=== PATIENT | male | born 1955 | race Caucasian/White ===

== ENCOUNTER 2020-10-31 09:07 | Emergency (ER) | payer BC, SELFPAY ==
[2020-10-31 09:10] VITALS: BP 126/81; PULSE 78; RESP 18; TEMP 36.4; O2SAT 99; BMI 28.9
--- NOTE | 2020-10-31 09:10 | DI.RAD.S_ITS ---
PROCEDURE: XR CHEST 1V INDICATIONS: palpitations, SOB, CP TECHNIQUE: One view of the chest was acquired. COMPARISON: None. FINDINGS: Surgical changes and devices: None. Lungs and pleura: Lungs are clear. No pleural effusions or pneumothorax. Mediastinum: Mediastinal contours appear normal. Heart size is normal. Bones and chest wall: No suspicious bony lesions. Overlying soft tissues appear unremarkable. IMPRESSION: No acute process. Dictated by: Vicente Zepeda M.D. on 10/31/2020 at 8:40 Approved by: Vicente Zepeda M.D. on 10/31/2020 at 8:40
[2020-10-31] MEDS: SODIUM CHLORIDE 0.9% 1,000 ML 150 ML IV (09:23)
[2020-10-31] MEDS: ASPIRIN 81 MG CHEW TAB 324 MG PO (09:23)
[2020-10-31 09:45] LABS: Add Manual Diff / Slide Review NO; Basophils Absolute Auto 0 /uL (0-100); Basophils Percent Auto 0.6 % (0-2); Eosinophils Absolute Auto 100 /uL (0-450); Eosinophils Percent Auto 3.2 % (2-4); Hematocrit 45.8 % (41-53); Hemoglobin 15.5 g/dL (13.5-17.5); Lymphocytes Absolute Auto 1100 /uL (1100-4500); Lymphocytes Percent Auto 25.7 % (25-40); Mean Corpuscular HGB Conc 33.8 % (30-36); Mean Corpuscular Hemoglobin 33.8 PG (26-34); Mean Corpuscular Volume 99.8 fL (80-100); Monocytes Absolute Auto 400 /uL (0-900); Monocytes Percent Auto 8.6 % (3-14); Neutrophils Absolute Auto 2500 /uL (1500-7000); Neutrophils Percent Auto 61.9 % (50-75); Platelet Count 240 X10^3/uL (150-400); Red Blood Cell Count 4.58 X10^6/uL (4.5-5.9); Red Cell Distribution Width 13.2 % (11.6-14.8); White Blood Cell Count 4.1 X10^3/uL (4.5-11.0)
--- NOTE | 2020-10-31 09:52 | PC.NURSE ---
reports his watch told him he is in afib. denies chest pains, denies SOB.
--- NOTE | 2020-10-31 09:58 | ED_ITS ---
HPI - Arrhythmia/Palpitations General Chief Complaint: Arrhythmia/Palpitations Stated Complaint: AFIB-SENT BY [facility] Time Seen by Provider: 10/31/20 09:10 Source: patient and family Mode of arrival: Family Vehicle Limitations: no limitations History of Present Illness HPI narrative: 64-year-old male nonsmoker without chronic medical history presents from the walk-in clinic for evaluation of an irregular heart rhythm. He states that he started having some palpitations and fluttering his chest last night and thinks he may or may not have had on occasion for prior episodes. He is currently largely asymptomatic but does have some palpitations. He has no known history of atrial fibrillation and states his watch last night suggested he does have AFib. He is not dizzy nor weak or lightheaded. He denies any new medications or dietary change. He did have a couple whiskeys last night which is more than normal but otherwise is at his baseline. Related Data Allergies Allergy/AdvReac Type Severity Reaction Status Date / Time No Known Drug Allergies Allergy Verified 10/31/20 09:22 Review of Systems Review of Systems Narrative: GENERAL: Denies chills, fatigue, malaise, fever, sweats. HEENT: Denies sinus pain, ear pain, sore throat, difficulty swallowing, dizziness. RESPIRATORY: Denies dyspnea, cough, wheezing, hemoptysis, sputum. CARDIOVASCULAR: See HPI GASTROINTESTINAL: Denies nausea, vomiting, abdominal pain, diarrhea, constipation, melena. : Denies dysuria, frequency, incontinence, hematuria, urinary retention. MUSCULOSKELETAL: denies weakness, joint pain, or bony pain SKIN: Denies rash, skin lesions, or other NEUROLOGIC: Denies weakness, headache, numbness, change in speech, confusion, seizures, incoordination. PSYCHIATRIC: No concerning psychosocial issues. 12 point review of systems is negative except for those stated above Patient History Social History Smoking Status: Never smoker Smoking Status: Never smoker alcohol intake frequency: 3 or more drinks per day Substance Use Type: does not use Exam Narrative Exam Narrative: GENERAL: [64] year old patient appears stated age. Well- developed patient, in mild distress. HEAD: Atraumatic. Normocephalic. EYES: Pupils equal round and reactive. Extraocular motions intact. No scleral icterus. No injection or drainage. ENT: Nose without bleeding, purulent drainage. Throat without erythema, tonsillar hypertrophy or exudate. Airway patent. NECK: Trachea midline. Non tender CARDIOVASCULAR: Irregular rhythm and rate rwithout murmurs, gallops, or rubs. RESPIRATORY: Clear to auscultation. Breath sounds equal bilaterally. No wheezes, rales, or rhonchi. No signs of respiratory distress GASTROINTESTINAL: Abdomen soft, non-tender, nondistended. EXTREMITIES: No edema or joint tenderness. BACK: Nontender without deformity or crepitance. No flank tenderness. NEURO: AOx3. SKIN: No rash or erythema of visible areas Initial Vital Signs Initial Vital Signs: Vital Signs Temperature 97.5 F L 10/31/20 09:10 Pulse Rate 78 10/31/20 09:10 Respiratory Rate 18 10/31/20 09:10 Blood Pressure 126/81 10/31/20 09:10 Pulse Oximetry 99 10/31/20 09:10 Scores CHADS-VASc Congestive heart failure: no Hypertension: no Age 75 years or older: no Diabetes mellitus: no Stroke, TIA, or TE: no Vascular disease: no Age 65 to 74 years: no Sex category (female): Male CHADS-VASc Score: 0 Course Course Course Narrative: Patient's timeline is unclear and he is certainly in no extremis. I have consulted with Cardiology we sure the opinion that he is inappropriate for cardioversion at this point time. His chads Vasc score is 0. Cardiology did recommend a low-dose beta-natalie but patient states his resting heart rate is typically in the 50s and we will hold off for now. Orders Ordered: ED Orders 10/31/20 09:10 XR chest 1V Stat EKG-12 Lead Stat 10/31/20 09:15 Complete Blood Count AUTO DIFF Stat Comprehensive Metabolic Panel Stat Lipase Stat NT-proBNP (BNP-Adult 18+) Stat Troponin & CK Cardiac Panel Stat Sodium Chloride (Normal Saline 0.9%) 1,000 mls @ 150 mls/hr IV CONT JOHN Last Admin: 10/31/20 09:23 Dose: 150 mls/hr Documented by: KRISTYN Discontinued Medications Aspirin (Aspirin 81 Mg Chew Tab) 324 mg PO NOW ONE Stop: 10/31/20 09:11 Last Admin: 10/31/20 09:23 Dose: 324 mg Documented by: RSTONE Consultations Consultation #1: call to Dr. Quijano, he agrees no indication for cardioversion. Ok with holding BB for now, recommends only full dose ASA and close follow up. Vital Signs Vital signs: Vital Signs - 8 hr 10/31/20 09:10 10/31/20 10:19 Temperature 97.5 F L Pulse Rate 78 78 Respiratory Rate 18 14 Blood Pressure 126/81 106/66 Pulse Oximetry 99 100 MDM - Arrhythmia/Palpitations Lab Data Result diagrams: 10/31/20 09:15 10/31/20 09:15 Labs: Lab Results 10/31/20 10/31/20 Range/Units 09:15 09:15 WBC 4.1 L (4.5-11.0) X10^3/uL RBC 4.58 (4.5-5.9) X10^6/uL Hgb 15.5 (13.5-17.5) g/dL Hct 45.8 (41-53) % MCV 99.8 (80-100) fL MCH 33.8 (26-34) PG MCHC 33.8 (30-36) % RDW 13.2 (11.6-14.8) % Plt Count 240 (150-400) X10^3/uL Neut % (Auto) 61.9 (50-75) % Lymph % (Auto) 25.7 (25-40) % [place] % (Auto) 8.6 (3-14) % Eos % (Auto) 3.2 (2-4) % Baso % (Auto) 0.6 (0-2) % Neut # (Auto) 2500 (6042-7114) /uL Lymph # (Auto) 1100 (5653-5950) /uL [place] # (Auto) 400 (0-900) /uL Eos # (Auto) 100 (0-450) /uL Baso # (Auto) 0 (0-100) /uL Sodium 139 (137-145) mmol/L Potassium 4.2 (3.4-5.1) mmol/L Chloride 107 (98-107) mmol/L Carbon Dioxide 29 (22-32) mmol/L BUN 14 (9-20) mg/dL Creatinine 0.99 (0.66-1.25) mg/dL Estimated GFR > 60.0 (>60) mL/min BUN/Creatinine Ratio 14.1 (6-22) Glucose 101 (80-110) mg/dL Calcium 9.3 (8.4-10.2) mg/dL Total Bilirubin 0.7 (0.2-1.3) mg/dL AST 23 (17-59) IU/L ALT 14 (<50) IU/L Alkaline Phosphatase 64 (38-126) U/L Total Creatine Kinase 68 (55-170) U/L CK-MB (CK-2) TNP CK-MB (CK-2) Rel Index TNP Troponin I < 0.012 (0.01-0.034) ng/mL NT-Pro-B Natriuret Pep 1150 H (<125) pg/mL Total Protein 7.1 (6.3-8.2) g/dL Albumin 4.2 (3.5-5.0) g/dL Globulin 2.9 (1.7-4.1) g/dL Albumin/Globulin Ratio 1.4 (1.0-2.8) Lipase 66 (23-300) U/L ECG Data Interpretation: EKG is atrial fibrillation with rate [ 75] and free of any signs of ischemia or ectopy. No ST segmental elevation or depression. No T wave inversions Discharge Plan Departure Patient Disposition: Home Clinical Impression: Atrial fibrillation Qualifiers: Atrial fibrillation type: paroxysmal Qualified Code(s): I48.0 - Paroxysmal atrial fibrillation Instructions: DI for Atrial Fibrillation Activity Restrictions/Additional Instructions: *You have been diagnosed with [newly discovered Atrial Fib ] *What to do: *Please begin use of Aspirin 325mg daily. *Call [facility] Cardiology (number below for Dr. Quijano) on Monday morning and let them know you were seen in the ED and Dr. Quijano (Cardiology) and Dr. Mortensen (Emergency) want you seen in follow up. *Return to Emergency Department if you should have any new, worsening or concerning symptoms, such as [chest pain, feel like you will pass out, shortness of breath, or other bothersome symptoms Referrals: Lewis Quijano MD [Physician] - Ambrose Guerrero MD [Primary Care Provider] -
[2020-10-31 09:59] LABS: Alanine Aminotransferase 14 IU/L (<50); Albumin 4.2 g/dL (3.5-5.0); Albumin Globulin Ratio 1.4 (1.0-2.8); Alkaline Phosphatase 64 U/L (38-126); Aspartate Aminotransferase 23 IU/L (17-59); BUN Creatinine Ratio 14.1 (6-22); Bilirubin Total 0.7 mg/dL (0.2-1.3); Blood Urea Nitrogen 14 mg/dL (9-20); Calcium 9.3 mg/dL (8.4-10.2); Carbon Dioxide 29 mmol/L (22-32); Chloride 107 mmol/L (98-107); Creatine Kinase 68 U/L (55-170); Estimated Glomerular Filt Rate > 60.0 mL/min (>60); Globulin 2.9 g/dL (1.7-4.1); Glucose 101 mg/dL (80-110); HEMOLYSIS < 15 (0-50); Lipase 66 U/L (23-300); Potassium 4.2 mmol/L (3.4-5.1); Sodium 139 mmol/L (137-145); Total Protein 7.1 g/dL (6.3-8.2)
[2020-10-31 10:11] LABS: NT-proBNP (BNP-Adult 18+) 1150 pg/mL (<125); Troponin I < 0.012 ng/mL (0.01-0.034)
[2020-10-31 10:19] VITALS: BP 106/66; PULSE 78; RESP 14; O2SAT 100
== END 2020-10-31 10:30 | disposition home or self-care (01) ==
PROVIDERS: Emergency Provider Emergency Medicine; PCP Family Medicine
DX: I48.0 Paroxysmal atrial fibrillation (principal)
CPT/HCPCS: 36415; 71045; 80053; 82550; 83690; 83880; 84484; 85025; 93005; 96360; 99284

== ENCOUNTER → 2020-11-02 16:34 | Outpatient (CLI) | payer BC, SELFPAY ==
[2020-11-02 17:13] LABS: Magnesium 2.1 mg/dL (1.6-2.3)
[2020-11-02 17:44] LABS: Thyroid Stimulating Hormone 3.95 uIU/mL (0.47-4.68)
== END ==
PROVIDERS: PCP Family Medicine; Referring Provider Family Medicine; Visit Provider Family Medicine
DX: I48.91 Unspecified atrial fibrillation (principal)
CPT/HCPCS: 36415; 83735; 84443

== ENCOUNTER → 2020-11-10 07:47 | Outpatient (CLI) | payer BC, SELFPAY ==
--- NOTE | 2020-11-10 | DI.ECHO.S_ITS ---
[facility] +---------+ Hospital +---------+ : : [address] : : : : [id number] : : : : Phone: [phone] Echocardiogram Report + + :Name: PHIL MORENO Study Date: 11/10/2020 Height: 75 in : :[facility] ReadingLocation: Weight: 227 lb : : Gender: Male BSA: 2.3 m2 : :: 1955 Age: 64 yrs BP: 104/73 mmHg: :Reason For Study: ATRIAL FIBRILLATION : :Ordering Physician: REESE, : :LAVINIA Performed By: Loren Bazan : :Referring: LAVINIA LEIGH : + + Interpretation Summary The ejection fraction is estimated to be 55-60%. Diastolic function could not be accurately assessed due to atrial fibrillation. The right ventricle is mildly dilated. The right ventricular systolic function is normal. The left atrium is mildly dilated. There is mild tricuspid regurgitation. The right ventricular systolic pressure is normal. Procedure: A two-dimensional transthoracic echocardiogram with color flow and Doppler was performed. The study quality was technically adequate. There is no prior echocardiogram noted for this patient. The patient was in atrial fibrillation with heart rates between 50-75 bpm during the exam. Left Ventricle: The left ventricle is normal in size and wall thickness. The ejection fraction is estimated to be 55-60%. Diastolic function could not be accurately assessed due to atrial fibrillation. Right Ventricle: The right ventricle is mildly dilated. The right ventricular systolic function is normal. Atria: The left atrium is mildly dilated. Right atrial size is normal. There is no Doppler evidence for an interatrial shunt. Mitral Valve: The mitral valve is normal in structure and function. There is trace mitral regurgitation. Aortic Valve: The aortic valve is trileaflet. The aortic valve opens well. There is no aortic valve stenosis. No aortic regurgitation is present. Tricuspid Valve: The tricuspid valve is normal in structure and function. There is mild tricuspid regurgitation. The right ventricular systolic pressure is estimated to be at least 20-25 mmHg based on an estimated right atrial pressure of 8 mm Hg. Pulmonic Valve: The pulmonic valve leaflets are thin and pliable; valve motion is normal. There is no pulmonic valvular regurgitation. Great Vessels: The aortic root is normal size. The dimensions of the ascending aorta are normal. The IVC is dilated (diameter is greater than 2.1 cm) yet it collapses greater than 50% with a sniff. This suggests a right atrial pressure of 8 mm Hg. Pericardium/ Pleura There is no pericardial effusion. There is no pleural effusion. MMode/2D Measurements & Calculations LVIDd: 5.2 cm LVOT diam: 2.3 cm LVIDs: 4.0 cm Ao root diam: 3.2 cm FS: 23.2 % asc Aorta Diam: 3.7 cm IVSd: 1.1 cm Ao Arch Diam (Prox Trans): 3.3 cm LVPWd: 0.83 cm LV singh. diameter/BSA (cm/m^2): 2.3 LV sys. diameter/BSA (cm/m^2): 1.7 LA A2 area: 25.5 cm2 RA long axis: 5.2 cm LA A4 area: 21.8 cm2 RA area: 16.1 cm2 LA length (vol): 5.8 cm RA vol: 42.2 ml LA vol: 81.0 ml RA : 18.2 ml/m2 LA vol index: 35.0 ml/m2 IVC diam: 2.3 cm RVD1 (basal): 4.4 cm TAPSE: 1.9 cm Doppler Measurements & Calculations Ao V2 max: 99.6 cm/sec LVOT Max Celso: 66.4 cm/sec Ao V2 mean: 74.5 cm/sec LV V1 max P.8 mmHg Ao max P.0 mmHg LV V1 VTI: 12.9 cm Ao mean P.4 mmHg NIC(I,D): 2.4 cm2 Ao V2 VTI: 21.9 cm NIC(V,D): 2.7 cm2 sev ratio: 0.59 NIC indexed to BSA (cm^2/m^2): 1.0 MV E max celso: 57.6 cm/sec TR max celso: 194.2 cm/sec MV A max celso: 1.2 cm/sec TR max P.1 mmHg MV E/A: 49.4 PA V2 max: 93.4 cm/sec Med Peak E' Celso: 12.6 cm/sec PA V2 mean: 68.5 cm/sec E/E' med: 4.6 PA mean P.0 mmHg Lat Peak E' Celso: 12.3 cm/sec PA pr(Accel): 13.9 mmHg E/E' lat: 4.7 E/e' average: 4.6 MV dec time: 0.23 sec [facility] 52.3 ml Reading Physician:05:01 PM
== END ==
PROVIDERS: PCP Family Medicine; Referring Provider Family Medicine; Visit Provider Family Medicine
DX: I07.1 Rheumatic tricuspid insufficiency (principal); I48.91 Unspecified atrial fibrillation
CPT/HCPCS: 93306

== ENCOUNTER → 2020-11-23 15:06 | Outpatient (CLI) | payer BC, SELFPAY ==
--- NOTE | 2020-12-16 10:25 | PM.CARDMON.1 ---
Importer Or Exporter Report Referral & Results Date Patient Seen: 11/23/20 Requesting provider: Ambrose Guerrero Indication: Atrial fibrillation Duration of monitoring (days): 7 Diary information: There were 4 patient triggered events noted These events were associated with (within 45 seconds) atrial fibrillation, PVCs, and a brief run of ventricular tachycardia Data: Minimum heart rate identified was 41 beats per minute at 00:59 on 11/30/2020 Maximum overall heart rate was 245 beats per minute at 16:41 on 11/25/2020 during a 4 beat run ventricular tachycardia Patient was continuously in atrial fibrillation with a heart rate between 41 and 197 beats per minute. More often than not patient's heart rate was less than 100 although at times did spike as noted There were occasional PVCs, approximately 1.2% of identified beats were premature ventricular ectopic in origin including several 2nd runs of ventricular bigeminy and reticular trigeminy There were 383 runs of nonsustained monomorphic ventricular tachycardia the longest lasting 12 beats at a rate of 183 beats per minute the fastest being the 4 beat run noted above Impression: Patient continuously in atrial fibrillation with probably adequate rate control although at times a bit tachycardic Patient with occasional PVCs and occasional runs of monomorphic ventricular tachycardia including a 12 beat run as above Clinical correlation suggested
== END ==
PROVIDERS: PCP Family Medicine; Referring Provider Family Medicine; Visit Provider Family Medicine
DX: I48.91 Unspecified atrial fibrillation (principal)
CPT/HCPCS: 93242; 93244

== ENCOUNTER → 2021-09-07 14:25 | Outpatient (CLI) | payer BC, SELFPAY ==
--- NOTE | 2021-09-07 | DI.US.S_ITS ---
PROCEDURE: US EXTREMITY NONVASC LOWER LT INDICATIONS: Palpable abnormality in the left thigh for several years which is now become painful. Patient is on Eliquis. TECHNIQUE: Real-time scanning was performed of the left thigh , with image documentation. COMPARISON: None. FINDINGS: 2.9 x 0.7 x 2.0 cm well-circumscribed isoechoic mass with a hyperechoic capsule consistent with a lipoma. 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 Dictated by: Veto Pearson M.D. on 09/07/2021 at 16:22 Approved by: Veto Pearson M.D. on 09/07/2021 at 16:23
== END ==
PROVIDERS: PCP Family Medicine; Referring Provider Family Medicine; Visit Provider Family Medicine
DX: D17.24 Benign lipomatous neoplasm of skin and subcutaneous tissue of left leg (principal)
CPT/HCPCS: 76882

== ENCOUNTER → 2023-08-14 11:11 | Outpatient (CLI) | payer MEDICARE, OTHER, SELFPAY ==
[2023-08-14 12:33] LABS: Alanine Aminotransferase 12 IU/L (<50); Albumin 4.2 g/dL (3.5-5.0); Albumin Globulin Ratio 1.6 (1.0-2.8); Alkaline Phosphatase 72 U/L (38-126); Aspartate Aminotransferase 20 IU/L (17-59); BUN Creatinine Ratio 16.3 (6-22); Bilirubin Total 0.6 mg/dL (0.2-1.3); Blood Urea Nitrogen 17 mg/dL (9-20); Calcium 9.1 mg/dL (8.4-10.2); Carbon Dioxide 27 mmol/L (22-32); Chloride 105 mmol/L (98-107); Estimated Glomerular Filt Rate > 60 mL/min (>60); Globulin 2.6 g/dL (1.7-4.1); Glucose 91 mg/dL (80-110); HEMOLYSIS < 15 (0-50); Potassium 4.8 mmol/L (3.4-5.1); Sodium 137 mmol/L (137-145); Total Protein 6.8 g/dL (6.3-8.2)
== END ==
PROVIDERS: PCP Family Medicine; Referring Provider Nurse Practitioner Acute Care; Visit Provider Nurse Practitioner Acute Care
DX: I48.0 Paroxysmal atrial fibrillation (principal)
CPT/HCPCS: 36415; 80053

== ENCOUNTER → 2023-11-29 11:09 | Outpatient (CLI) | payer MEDICARE, OTHER, SELFPAY ==
--- NOTE | 2023-11-29 11:11 | DI.RAD.S_ITS ---
PROCEDURE: XR KNEE LT 3V INDICATIONS: LEFT KNEE PAIN TECHNIQUE: 3 views of the knee were acquired. COMPARISON: None. FINDINGS: Bones: No fractures or dislocations. No suspicious bony lesions. Tricompartmental degenerative changes of the left knee. There is joint space narrowing of the medial femorotibial compartment bilaterally. Soft tissues: Small joint effusion. No suspicious soft tissue calcifications. IMPRESSION: Left knee without acute fracture or malalignment. Tricompartmental osteoarthrosis. Medial femorotibial compartment joint space narrowing of the bilateral knee on weight-bearing view. Dictated by: Good Wyman M.D. on 11/29/2023 at 16:28 Approved by: Good Wyman M.D. on 11/29/2023 at 16:30
== END ==
PROVIDERS: PCP Family Medicine; Referring Provider Family Medicine; Visit Provider Family Medicine
DX: M17.12 Unilateral primary osteoarthritis, left knee (principal); M25.562 Pain in left knee; G89.29 Other chronic pain
CPT/HCPCS: 73562

== ENCOUNTER → 2023-12-17 10:43 | Outpatient (CLI) | payer MEDICARE, OTHER, SELFPAY ==
--- NOTE | 2023-12-17 10:45 | DI.MRI.S_ITS ---
PROCEDURE: MR KNEE LT WO CON INDICATIONS: CHRONIC PAIN OF LEFT KNEE TECHNIQUE: Noncontrast sagittal PD fast spin echo and T2 fast spin echo with fat saturation, sagittal 3-D FLASH with fat saturation; coronal T1 spin echo and PD fast spin echo with fat saturation, and axial PD fast spin echo with fat saturation through the knee. COMPARISON: [facility], CR, XR KNEE LT 3V, 11/29/2023, 10:43. FINDINGS: Image quality: Excellent. Anterior cruciate ligament: Intact. Posterior cruciate ligament: Intact. Medial collateral ligament: Intact. Lateral collateral ligament: Intact. Medial meniscus: Horizontal oblique tearing of the posterior horn and body of the medial meniscus with a small inferiorly displaced meniscal flap at the junction of the posterior horn and body extending into the medial tibial gutter. There is mild meniscal extrusion. Lateral meniscus: Intact. Medial and lateral tendons: The semimembranosus tendon insertions appear intact. Visualized portions of the pes anserinus tendons appear normal. The popliteus tendon is intact. Iliotibial band appears normal. Anterior structures: Mild patellar tendinosis and distal quadriceps tendinosis. A suprapatellar enthesophyte is present. No patellar subluxation. No femoral trochlear dysplasia or ventral trochlear prominence. No edema in the infrapatellar fat pad. Bones and cartilage: No bone marrow contusions or fractures. Medial femorotibial cartilage: Areas of moderate and high-grade cartilage thinning and irregularity are seen throughout the weight-bearing portion of the medial femorotibial compartment. Focal subchondral edema is seen at the posterior weight-bearing portion of the medial tibial plateau. Lateral femorotibial cartilage: Mild partial-thickness cartilage irregularity. Patellofemoral cartilage: Mild partial-thickness cartilage irregularity and cartilage fissuring most notably at the medial and lateral patellar facets. Soft tissues: Moderate joint effusion is present. There is a small medial popliteal cyst. The included musculature is age-appropriate in bulk. Nonspecific prepatellar subcutaneous soft tissue edema. IMPRESSION: 1. Complex tearing of the medial meniscus with a horizontal oblique component at the posterior horn and body and a superimposed small inferiorly displaced meniscal flap at the junction of the posterior horn and body extending into the medial tibial gutter. 2. 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 There is grade 2 chondromalacia in the lateral and anterior compartments. 3. Cruciate and collateral ligaments are intact. No acute trabecular bone injury. Lateral meniscus is intact. 4. Mild patellar tendinosis and distal quadriceps tendinosis. 5. Moderate joint effusion. Small medial popliteal cyst. Approved by: Hamilton Mejía M.D. on 12/18/2023 at 11:00
== END ==
PROVIDERS: PCP Family Medicine; Referring Provider Family Medicine; Visit Provider Family Medicine
DX: M94.262 Chondromalacia, left knee (principal); S83.232A Complex tear of medial meniscus, current injury, left knee, initial encounter; M71.22 Synovial cyst of popliteal space [Baker], left knee; M25.462 Effusion, left knee; M25.562 Pain in left knee; G89.29 Other chronic pain
CPT/HCPCS: 73721